=== PATIENT | female | born 1990 | race Caucasian/White ===

== ENCOUNTER 2017-06-20 17:20 | Emergency (ER) | payer BC, MEDICAID ==
--- NOTE | 2017-06-20 17:40 | UC ---
Nausea/Vomiting/Diarrhea HPI - HPI Summary HPI Summary: 27 year old female presents with complains of cough, fatigue and vomiting. - History of Current Complaint Stated Complaint: VOMITTING Time Seen by Provider: 06/20/17 17:39 Hx Obtained From: Patient, Family/Mill Roll Rewinder Hx Last Menstrual Period: 3 weeks ago. Onset/Duration: Sudden Onset Severity Initially: Moderate Severity Currently: Moderate Pain Scale Used: 0-10 Numeric - 0 Aggravating Factor(s): Deep Breaths Alleviating Factor(s): Position - Allergies/Home Medications Allergies/Adverse Reactions: Allergies Allergy/AdvReac Type Severity Reaction Status Date / Time No Known Allergies Allergy Verified 06/20/17 17:41 PMH/Surg Hx/FS Hx/Imm Hx Previously Healthy: Yes Other History Of: Negative For: HIV, Hepatitis B, Hepatitis C, Anticoagulant Therapy - Surgical History Surgical History: Yes Surgery Procedure, Year, and Place: T & A. CYSTECTOMY LEFT EYE-INFANCY. Ear tubes - Family History Known Family History: Positive: None - Social History Alcohol Use: None Substance Use Type: None Smoking Status (MU): Never Smoked Tobacco - Immunization History Most Recent Influenza Vaccination: 03/2015 Review of Systems Constitutional: Negative Skin: Negative Eyes: Negative ENT: Nasal Discharge, Sinus Congestion, Sinus Pain/Tenderness Respiratory: Cough Cardiovascular: Negative Gastrointestinal: Negative Genitourinary: Negative Motor: Negative Neurovascular: Negative Musculoskeletal: Negative Neurological: Negative Psychological: Negative All Other Systems Reviewed And Are Negative: Yes Physical Exam Triage Information Reviewed: Yes Vital Signs Reviewed: Yes Eye Exam: Normal Eyes: Positive: Conjunctiva Inflamed ENT Exam: Normal ENT: Positive: Pharyngeal erythema, Nasal congestion, Nasal drainage Dental Exam: Normal Neck exam: Normal Neck: Positive: 1 Respiratory Exam: Normal Respiratory: Positive: Wheezing Cardiovascular Exam: Normal Abdominal Exam: Normal Musculoskeletal Exam: Normal Neurological Exam: Normal Psychological Exam: Normal Skin Exam: Normal Naus/Vom/Diarrhea Course/Dx - Differential Dx/Diagnosis Provider Diagnoses: allergic rhinitis Condition At Discharge: Stable Discharge - Discharge Plan Condition: Stable Disposition: HOME Prescriptions: Albuterol SYRUP* [Proventyl Syrup*] 2 mg PO TID PRN #120 ml PRN Reason: Cough Loratadine [Claritin 5 MG/5 ML SYRUP] 10 mg PO BEDTIME #120 ml Patient Education Materials: Allergic Rhinitis (ED) Referrals: LUIS MIGUEL Romero [Primary Care Provider] -
[2017-06-20 17:56] VITALS: BP 96/63
== END 2017-06-20 19:00 | disposition home or self-care (01) ==
LOC: UCCORT 17:20
DX: J30.9 Allergic rhinitis, unspecified (principal); R53.83 Other fatigue; R11.10 Vomiting, unspecified
CPT/HCPCS: 87502; 87651; 99212; G0463

== ENCOUNTER 2017-09-03 18:05 | Emergency (ER) | payer BC, MEDICAID ==
[2017-09-03 18:42] VITALS: BP 96/54
[2017-09-03] MEDS ORDERED: Acetaminophen TAB* 325 MG PO ONE (19:29)
--- NOTE | 2017-09-03 19:34 | UC ---
Throat Pain/Nasal Jaron HPI - HPI Summary HPI Summary: 27 female presents to with complaints of fever, cough, congestion and sore throat that has been ongoing for a week however worsened last night. Temp began yesterday highest was 101F. Has been taking tylenol/ibuprofen. Strep is going around family and did go around children over the weekend. Does take methotrexate for RA. Did also have 2 episodes of vomiting. No chest pain or trouble breathing. - History of Current Complaint Chief Complaint: UCGeneralIllness Stated Complaint: SORE THROAT, FEVER, STOMACH ACHE Time Seen by Provider: 09/03/17 18:47 Hx Obtained From: Patient Hx Last Menstrual Period: PRESENT Onset/Duration: Sudden Onset, Lasting Weeks, Still Present, Worse Since Severity: Moderate Pain Intensity: 8 Pain Scale Used: 0-10 Numeric Cough: Productive Associated Signs & Symptoms: Positive: Dysphagia, Nasal Discharge, Vomiting - Allergies/Home Medications Allergies/Adverse Reactions: Allergies Allergy/AdvReac Type Severity Reaction Status Date / Time No Known Allergies Allergy Verified 09/03/17 18:42 PMH/Surg Hx/FS Hx/Imm Hx - Additional Past Medical History Additional PMH: Denies DM, HTN Endocrine History: Hypothyroidism Other History Of: Negative For: HIV, Hepatitis B, Hepatitis C, Anticoagulant Therapy - Surgical History Surgical History: Yes Surgery Procedure, Year, and Place: T & A. CYSTECTOMY LEFT EYE-INFANCY. Ear tubes - Family History Known Family History: Positive: None - Social History Alcohol Use: None Substance Use Type: None Smoking Status (MU): Never Smoked Tobacco - Immunization History Most Recent Influenza Vaccination: 03/2015 Review of Systems Constitutional: Fever, Chills, Fatigue ENT: Sore Throat, Nasal Discharge Respiratory: Cough Cardiovascular: Negative Gastrointestinal: Vomiting Musculoskeletal: Myalgia All Other Systems Reviewed And Are Negative: Yes Physical Exam Triage Information Reviewed: Yes Appearance: No Pain Distress, Well-Nourished, Ill-Appearing Vital Signs: Initial Vital Signs Temp 100.5 F 09/03/17 18:37 Pulse 78 09/03/17 18:37 Resp 18 09/03/17 18:37 BP 96/54 09/03/17 18:37 Pulse Ox 100 09/03/17 18:37 temp noted, given tylenol Vital Signs Reviewed: Yes Eyes: Positive: Conjunctiva Clear ENT: Positive: Hearing grossly normal, Pharyngeal erythema, Nasal congestion, TM dull - left, TM red, Uvula midline - no peritonsillar abscess. Negative: Tonsillar swelling, Tonsillar exudate - tonsillectomy Dental: Positive: Cervical Lymphadenopathy. Negative: Percussion Tenderness @ Neck: Positive: Supple, Nontender Respiratory: Positive: Chest non-tender, Lungs clear, Normal breath sounds, No respiratory distress, No accessory muscle use Cardiovascular: Positive: RRR, No Murmur, Pulses Normal Abdomen Description: Positive: Nontender, No Organomegaly, Soft Bowel Sounds: Positive: Present Musculoskeletal: Positive: Strength Intact Neurological: Positive: Alert Skin Exam: Normal Throat Pain/Nasal Course/Dx - Course Course Of Treatment: rapid strep obtained and negative however was not a good sample. flu obtained and also negative. due to + strep exposure, symptoms, physical exam findings and left ear infection will treat with amox. increase fluids, rest. continue tylenol/ibu for fever. given tylenol while in UC for fever. rest of vitals normal. no other concerns. aware of worsening signs and symptoms. educated on symptomatic measures at home and hygiene precautions. follow up for recheck with pcp. - Differential Dx/Diagnosis Differential Diagnosis/HQI/PQRI: Influenza, Pharyngitis, Sinusitis, URI Provider Diagnoses: strep pharyngitis, left otitis media Discharge - Discharge Plan Condition: Good Disposition: HOME Patient Education Materials: Ear Infection (ED), Strep Throat (ED) Referrals: LUIS MIGUEL Romero [Primary Care Provider] - Additional Instructions: Continue taking ibuprofen/tylenol as needed for fever/discomfort. Take prescribed antibiotic as directed until entire dose is finished. Salt water gargles, new toothbrush after 7 days of treatment. Increase fluid intake, get plenty of rest. Chloraspetic spray to soothe throat. Any new or worsening symptoms please seek medical attention promptly. Follow up with PCP.
[2017-09-03] MEDS ORDERED: Acetaminophen ADULT LIQ* 650 MG/20.3 ML UDC PO ONE (19:47)
== END 2017-09-03 19:58 | disposition home or self-care (01) ==
LOC: UCCORT 18:05
DX: J02.0 Streptococcal pharyngitis (principal); H66.92 Otitis media, unspecified, left ear; E03.9 Hypothyroidism, unspecified
CPT/HCPCS: 87502; 87651; 99212; A9270-GY; G0463

== ENCOUNTER 2018-04-24 19:22 | Emergency (ER) | payer BC, MEDICAID ==
[2018-04-24 20:02] VITALS: BP 118/63
--- NOTE | 2018-04-24 20:45 | UC ---
Throat Pain/Nasal Jaron HPI - HPI Summary HPI Summary: 28 yo female with Down's Syndrome and RA (on MTX) presents with a greater than 2 week hx of progressively worsening cough/nasal congestion/post nasal drip and sore throat. She has facial pressure and pain no f/c - History of Current Complaint Chief Complaint: UCGeneralIllness Stated Complaint: SORE THROAT, CONGESTION, COUGH Time Seen by Provider: 04/24/18 20:27 Hx Obtained From: Patient Hx Last Menstrual Period: 04/11/18 Onset/Duration: Gradual Onset, Lasting Weeks Severity: Severe Pain Intensity: 10 Pain Scale Used: 0-10 Numeric Cough: None Associated Signs & Symptoms: Positive: Sinus Discomfort, Nasal Discharge - Epiglottits Risk Factors Epiglottis Risk Factors: Negative - Allergies/Home Medications Allergies/Adverse Reactions: Allergies Allergy/AdvReac Type Severity Reaction Status Date / Time No Known Allergies Allergy Verified 04/24/18 20:02 Home Medications: Home Medications D-Methorphan/PE/Acetaminophen [Vicks Dayquil Cold & Flu 10-5-325 mg/15Ml] 1 liq PO ONCE 04/24/18 [History Confirmed 04/24/18] PMH/Surg Hx/FS Hx/Imm Hx Previously Healthy: Yes - RA, PIEDAD Other History Of: Negative For: HIV, Hepatitis B, Hepatitis C, Anticoagulant Therapy - Surgical History Surgical History: Yes Surgery Procedure, Year, and Place: T & A. CYSTECTOMY LEFT EYE-INFANCY. Ear tubes - Family History Known Family History: Positive: Hypertension - Social History Alcohol Use: None Substance Use Type: None Smoking Status (MU): Never Smoked Tobacco - Immunization History Most Recent Influenza Vaccination: 03/2015 Review of Systems Constitutional: Negative Skin: Negative Eyes: Negative ENT: Sore Throat, Nasal Discharge, Sinus Congestion, Sinus Pain/Tenderness Respiratory: Cough Cardiovascular: Negative Gastrointestinal: Negative Genitourinary: Negative Motor: Negative Neurovascular: Negative Musculoskeletal: Negative Neurological: Negative Psychological: Negative All Other Systems Reviewed And Are Negative: Yes Physical Exam Triage Information Reviewed: Yes Appearance: Well-Appearing, No Pain Distress, Well-Nourished, Other: - stimata of Down's syndrome Vital Signs: Initial Vital Signs Temp 98 F 04/24/18 19:57 Pulse 69 04/24/18 19:57 Resp 17 04/24/18 19:57 BP 118/63 04/24/18 19:57 Pulse Ox 100 04/24/18 19:57 Eyes: Positive: Conjunctiva Clear ENT: Positive: Hearing grossly normal, TMs normal, Sinus tenderness, Uvula midline. Negative: Nasal congestion, Nasal drainage, Tonsillar swelling, Tonsillar exudate, Trismus, Muffled voice, Hoarse voice Neck: Positive: Supple, Nontender, Enlarged Nodes @ - left ant cerv Respiratory: Positive: Lungs clear, Normal breath sounds, No respiratory distress, No accessory muscle use Cardiovascular: Positive: RRR, No Murmur Musculoskeletal: Positive: ROM Intact, No Edema Neurological: Positive: Alert Psychological Exam: Normal Skin Exam: Normal Throat Pain/Nasal Course/Dx - Differential Dx/Diagnosis Provider Diagnoses: acute sinusitis Discharge - Sign-Out/Discharge Documenting (check all that apply): Patient Departure All imaging exams completed and their final reports reviewed: No Studies - Discharge Plan Condition: Stable Disposition: HOME Prescriptions: Cefdinir 250mg/5 ml* [Omnicef 250 mg/5 ml*] 600 mg PO DAILY #84 btl Patient Education Materials: Sinusitis (ED) Referrals: Rosy Arthur MD [Primary Care Provider] - 5 Days (if not better) - Billing Disposition and Condition Condition: STABLE Disposition: Home
== END 2018-04-24 20:46 | disposition home or self-care (01) ==
LOC: UCCORT 19:22
DX: J01.90 Acute sinusitis, unspecified (principal); Q90.9 Down syndrome, unspecified; M06.9 Rheumatoid arthritis, unspecified; Z79.899 Other long term (current) drug therapy
CPT/HCPCS: 99212; G0463

== ENCOUNTER 2018-06-16 12:47 | Emergency (ER) | payer BC, MEDICAID ==
[2018-06-16 13:22] VITALS: BP 105/55
--- NOTE | 2018-06-16 13:24 | UC ---
UC General HPI - HPI Summary HPI Summary: Pleasant 28 yo female presents with family c/o last several days progressive worse sore throat, nasal congestion, cough. Appetite decreased. General feeling of unwellness. No rash. No sob / cp / palpitations. No GI / issues reported. Pt is s/p T/A approx age 8 yrs old. - History of Current Complaint Chief Complaint: UCGeneralIllness Stated Complaint: SORE TRHOAT,CONGESTION,HEADACHE Time Seen by Provider: 06/16/18 13:23 Hx Obtained From: Patient, Family/Software Business Analyst Hx Last Menstrual Period: 06/13/18 Pain Intensity: 2 - Allergy/Home Medications Allergies/Adverse Reactions: Allergies Allergy/AdvReac Type Severity Reaction Status Date / Time No Known Allergies Allergy Verified 06/16/18 13:15 Home Medications: Home Medications Doxylam/PE/Dm/Acetaminophen/GG [Vicks Dayquil/Nyquil Davina] 1 liq PO SEE INSTRUCTIONS PRN 06/16/18 [History Confirmed 06/16/18] Levothyroxine TAB* [Synthroid TAB*] 62.5 mcg PO DAILY 06/16/18 [History Confirmed 06/16/18] PMH/Surg Hx/FS Hx/Imm Hx Previously Healthy: Yes Other History Of: Negative For: HIV, Hepatitis B, Hepatitis C, Anticoagulant Therapy - Surgical History Surgical History: Yes Surgery Procedure, Year, and Place: T & A. CYSTECTOMY LEFT EYE-INFANCY. Ear tubes - Family History Known Family History: Positive: Hypertension - Social History Alcohol Use: None Substance Use Type: None Smoking Status (MU): Never Smoked Tobacco - Immunization History Most Recent Influenza Vaccination: 03/2015 Review of Systems All Other Systems Reviewed And Are Negative: Yes Constitutional: Positive: Other - see hpi Skin: Positive: Negative Eyes: Positive: Negative ENT: Positive: Other - see hpi Respiratory: Positive: Cough Cardiovascular: Positive: Negative Gastrointestinal: Positive: Negative Genitourinary: Positive: Negative Motor: Positive: Negative Neurovascular: Positive: Negative Musculoskeletal: Positive: Negative Neurological: Positive: Negative Psychological: Positive: Negative Is Patient Immunocompromised?: No Physical Exam Triage Information Reviewed: Yes Appearance: Well-Nourished - sitting up, conversing easily. Vital Signs: Initial Vital Signs Temp 99.2 F 06/16/18 13:13 Pulse 82 06/16/18 13:13 Resp 18 06/16/18 13:13 BP 105/55 06/16/18 13:13 Pulse Ox 100 06/16/18 13:13 Vital Signs Reviewed: Yes Eye Exam: Normal - grossly nad ENT: Positive: Pharyngeal erythema - s/p T/A several years ago. Post pharynx, including uvula red, swollen. No exudate appreciated. Airway patent. No stridor., TM dull - TM dull, rhodes Left R TM not visible d/t cerumen impaction Neck exam: Normal - c/o discomfort when swallows Neck: Positive: Supple, Nontender, No Lymphadenopathy Respiratory Exam: Normal Respiratory: Positive: Chest non-tender, Lungs clear, Normal breath sounds, No respiratory distress, No accessory muscle use Cardiovascular Exam: Normal Cardiovascular: Positive: RRR, No Murmur, Pulses Normal, Brisk Capillary Refill Abdominal Exam: Normal Abdomen Description: Positive: Nontender Musculoskeletal Exam: Normal - grossly nad Neurological Exam: Normal - congenital neurocognitive challenges, but grossly nad Psychological: Positive: Normal Response To Family Skin Exam: Normal - nondiaphoretic. No visible or reported rash. Course/Dx - Course Course Of Treatment: RST negative. R eac flushed by RN - TM dull, mild red. Reviewed coa / tx plan. Questions posed answered to the best of my ability. - Diagnoses Provider Diagnosis: Pharyngitis, Serous otitis media, Cerumen impaction Discharge - Sign-Out/Discharge Documenting (check all that apply): Patient Departure All imaging exams completed and their final reports reviewed: No - Discharge Plan Condition: Stable Disposition: HOME Prescriptions: Azithromycin 200/5 SUSP(NF) [Zithromax 200 mg/5 ml SUSP(NF)] 500 mg PO DAILY #2 btl Patient Education Materials: Pharyngitis (ED), Cerumen Impaction (ED) Referrals: Rosy Arthur MD [Primary Care Provider] - Additional Instructions: Follow up with your primary care physician, per routine. Seek medical attention for worse or new problems in the meantime. Strep test today negative. Mononucleosis blood test has been sent. Change your toothbrush twice this week. Change your toothpaste once this week. - Billing Disposition and Condition Condition: STABLE Disposition: Home
[2018-06-19 11:46] LABS: EBV Capsid Ag IgG Ab Positive (Negative); EBV Capsid Ag IgM Ab Negative (Negative); Epstein-Barr Nuclear Antigen Positive (Negative)
--- NOTE | 2018-06-19 15:39 | UC ---
- Progress Note Progress Note: + EBV IgG + EBV antigen neg IgM remote infection supportive care 06/19/18 Course/Dx - Diagnoses Provider Diagnoses: Pharyngitis, Serous otitis media, Cerumen impaction Discharge - Sign-Out/Discharge Documenting (check all that apply): Post-Discharge Follow Up All imaging exams completed and their final reports reviewed: No - Discharge Plan Condition: Stable Disposition: HOME Prescriptions: Azithromycin 200/5 SUSP(NF) [Zithromax 200 mg/5 ml SUSP(NF)] 500 mg PO DAILY #2 btl Patient Education Materials: Pharyngitis (ED), Cerumen Impaction (ED) Referrals: Rosy Arthur MD [Primary Care Provider] - Additional Instructions: Follow up with your primary care physician, per routine. Seek medical attention for worse or new problems in the meantime. Strep test today negative. Mononucleosis blood test has been sent. Change your toothbrush twice this week. Change your toothpaste once this week. - Billing Disposition and Condition Condition: STABLE Disposition: Home
== END 2018-06-16 14:31 | disposition home or self-care (01) ==
LOC: UCCORT 12:47
DX: J02.9 Acute pharyngitis, unspecified (principal); H65.90 Unspecified nonsuppurative otitis media, unspecified ear; H61.21 Impacted cerumen, right ear
CPT/HCPCS: 36415; 86308; 86664; 86665; 87651; 99212; G0463

== ENCOUNTER 2018-11-24 11:49 | Emergency (ER) | payer BC, MEDICAID ==
--- NOTE | 2018-11-24 13:51 | UC ---
Throat Pain/Nasal Jaron HPI - HPI Summary HPI Summary: sore throat for one day with fever last night. Pt finished treatment for an otitis externa. Mother states the pt fell last night when she got out of bed becauseshe was dizzy,and her fever was 101 but no injury and pt states she no longer feels dizzy. She did not hit her head and has no neck pain. - History of Current Complaint Stated Complaint: FEVER, SORE THROAT Time Seen by Provider: 11/24/18 13:37 Hx Obtained From: Patient, Family/Loans Officer Hx Last Menstrual Period: 06/13/18 ?: No Onset/Duration: Gradual Onset Severity: Mild Cough: None - Allergies/Home Medications Allergies/Adverse Reactions: Allergies Allergy/AdvReac Type Severity Reaction Status Date / Time No Known Allergies Allergy Verified 11/24/18 13:40 Home Medications: Home Medications Ibuprofen [Ibuprofen Childrens] 30 ml PO PRN 11/24/18 [History] PMH/Surg Hx/FS Hx/Imm Hx Previously Healthy: Yes Endocrine History: Thyroid Disease Other Psychological History: Down's Syndrome Other History Of: Negative For: HIV, Hepatitis B, Hepatitis C, Anticoagulant Therapy - Surgical History Surgical History: Yes Surgery Procedure, Year, and Place: T & A. CYSTECTOMY LEFT EYE-INFANCY. Ear tubes - Family History Known Family History: Positive: Hypertension - Social History Alcohol Use: None Substance Use Type: None Smoking Status (MU): Never Smoked Tobacco - Immunization History Most Recent Influenza Vaccination: 03/2015 Review of Systems All Other Systems Reviewed And Are Negative: Yes Constitutional: Positive: Fever ENT: Positive: Sore Throat Is Patient Immunocompromised?: No Physical Exam Triage Information Reviewed: Yes Appearance: Well-Appearing, No Pain Distress, Well-Nourished Vital Signs Reviewed: Yes Eye Exam: Normal ENT: Positive: Pharynx normal, TMs normal, Uvula midline Neck exam: Normal Neck: Positive: Supple, Nontender, No Lymphadenopathy Respiratory: Positive: Chest non-tender, Lungs clear, Normal breath sounds, No respiratory distress, No accessory muscle use Cardiovascular: Positive: RRR, No Murmur, Pulses Normal, Brisk Capillary Refill Abdomen Description: Positive: Nontender, No Organomegaly, Soft Bowel Sounds: Positive: Present Musculoskeletal: Positive: Strength Intact, ROM Intact Neurological: Positive: Alert, Muscle Tone Normal Psychological: Positive: Normal Response To Family Throat Pain/Nasal Course/Dx - Course Course Of Treatment: Rapid strep was negative. At this point, I believe this is a viral URI. Ear exam was normal.. - Differential Dx/Diagnosis Provider Diagnosis: URI (upper respiratory infection), Pharyngitis Discharge - Sign-Out/Discharge Documenting (check all that apply): Patient Departure All imaging exams completed and their final reports reviewed: No Studies - Discharge Plan Condition: Fair Disposition: HOME Patient Education Materials: Pharyngitis (ED) Referrals: Rosy Arthur MD [Primary Care Provider] - Additional Instructions: Increase fluids, recheck in 2-3 days if continued fever, may alternate Tylenol every 4 hours with Ibuprofen every 8 hours for fever. - Billing Disposition and Condition Condition: FAIR Disposition: Home - Attestation Statements Provider Attestation: Per institutional requirements, I have reviewed the chart, however, I was not consulted specifically or made aware of this patient by the midlevel provider. I did not personally evaluate, interact with , or disposition this patient.
[2018-11-24 13:54] VITALS: BP 104/53
[2018-11-24] MEDS ORDERED: Acetaminophen ADULT LIQ* 650 MG/20.3 ML UDC PO ONE (14:06)
== END 2018-11-24 14:28 | disposition home or self-care (01) ==
LOC: UCCORT 11:49
DX: J06.9 Acute upper respiratory infection, unspecified (principal); J02.9 Acute pharyngitis, unspecified; E07.9 Disorder of thyroid, unspecified; Q90.9 Down syndrome, unspecified
CPT/HCPCS: 87651; 99212; A9270-GY; G0463